=== PATIENT | female | born 1995 | race Two or more races ===

== ENCOUNTER 2024-12-04 13:48 | Emergency (ER) | payer OTHER ==
[~2024-12-04] VITALS: Ht 160 cm; Wt 55.3 kg
[~2024-12-04 13:48] MED LIST: CIPRO500 MG/5 M PO; LEVSIN0.125 MG PO; NABUMETONE500 MG PO; OMEPRAZOLE MAGN20 MG PO; PEPCID AC20 MG PO
[2024-12-04] MEDS ORDERED: FAMOTIDINE/PF 20 MG/2 ML VIAL IV ONE (15:30)
[2024-12-04] MEDS ORDERED: 0.9 % SODIUM CHLORIDE 500 ML IV ONE (15:30)
[2024-12-04] MEDS ORDERED: FAMOTIDINE/PF 20 MG/2 ML VIAL ONE (15:54)
[2024-12-04 16:16] LABS: BASO % 0.5 % (0.1-1.2); EOS # 0.17 (0.04-0.54); EOS % 2.7 % (0.7-7.0); LYMPH # 2.15 (1.18-3.74); LYMPH % 34.1 % (19.3-53.1); MEAN PLATELET VOLUME 10.60 fl (9.4-12.4); MONO # 0.41 (0.24-0.82); MONO % 6.5 % (4.7-12.5); NEUT # 3.54 (1.56-6.13); NEUT % 56.2 % (34.0-71.1); RED CELL DISTRIBUTION WIDTH 12.3 % (11.6-14.4)
[2024-12-04 16:31] LABS: URINE APPEARANCE Clear; URINE BILIRRUBIN Negative (NEGATIVE); URINE BLOOD Negative; URINE COLOR Yellow; URINE GLUCOSE Negative (NEGATIVE); URINE KETONE 15 (NEGATIVE); URINE LEUKOCYTE Negative; URINE NITRATE Negative; URINE PROTEIN Negative (NEGATIVE); URINE UROBILINOGEN 0.2 E.U./dl
[2024-12-04 16:35] LABS: URINE BACTERIA 1273.0 uL (0.0-1933); URINE EPITHELIAL CELLS 18.6 uL (0.0-38.8); URINE RBC 2.1 uL (0.0-20.8); URINE WBC 7.5 uL (0.0-23.2)
[2024-12-04 16:36] LABS: URINE CAST 0.00 uL (0.0-1.40)
[2024-12-04 16:54] LABS: ALT/SGPT 23 U/L (12-78); AST/SGOT 17 U/L (15-37); BILIRUBIN TOTAL 0.58 mg/dL (0.3-1.2); BILIRUBIN,CONJUGATED < 0.10 mg/dL (0.0-0.2); BUN CREA RATIO 16 (7.0-25.0); CREATININE SERUM 0.90 mg/dL (0.55-1.02); GFR 73.52; GLOBULINA 3.0 G/DL (2.4-3.5); GLUCOSE FASTING 107 mg/dL (65-100); OSMOLALITY SERUM 282 MOSM/KG (275-295)
[2024-12-04] MEDS ORDERED: KETOROLAC TROMETHAMINE 30 MG VIAL IV ONE (18:30)
[2024-12-04] MEDS ORDERED: KETOROLAC TROMETHAMINE 30 MG VIAL ONE (18:35)
[2024-12-04] MEDS ORDERED: DICLOFENAC SODI50 MG PO (18:37)
[2024-12-04] MEDS ORDERED: NORFLEX100MG PO (18:37)
== END 2024-12-04 19:18 | disposition home or self-care (01) ==
LOC: ER 14:01
PROVIDERS: General Practice
DX: R07.89 Other chest pain (principal); R10.9 Unspecified abdominal pain; M62.838 Other muscle spasm; Z88.9 Allergy status to unspecified drugs, medicaments and biological substances